=== PATIENT | female | born 1985 | race Caucasian/White ===

== ENCOUNTER → 2021-09-07 10:49 | Outpatient (BNVA) | payer BC, SELFPAY | PROVIDERS: Family Provider Obstetrics & Gynecology; Visit Provider Nurse Practitioner Family | DX: M25.522 Pain in left elbow (principal) | CPT/HCPCS: 73080 ==

== ENCOUNTER → 2022-11-30 10:40 | Outpatient (BNVA) | payer BC, SELFPAY | PROVIDERS: Family Provider Obstetrics & Gynecology; Visit Provider Podiatrist Foot & Ankle Surgery | DX: M77.52 Other enthesopathy of left foot and ankle (principal); M76.822 Posterior tibial tendinitis, left leg | CPT/HCPCS: 73610 ==

== ENCOUNTER → 2023-06-08 11:18 | Outpatient (BNVA) | payer BC, SELFPAY | PROVIDERS: Family Provider Obstetrics & Gynecology; Visit Provider Nurse Practitioner Family | DX: R53.83 Other fatigue (principal); E66.9 Obesity, unspecified | CPT/HCPCS: 80053; 80061; 84443 ==

== ENCOUNTER 2023-08-07 08:30 | Outpatient (CLI) | payer BC, SELFPAY | END 2023-08-07 08:31 | disposition home or self-care (01) | LOC: SLEEP 08-08 10:45 | PROVIDERS: Family Provider Obstetrics & Gynecology; Visit Provider Nurse Practitioner Family | DX: G47.33 Obstructive sleep apnea (adult) (pediatric) (principal) | CPT/HCPCS: G0399 ==

== ENCOUNTER → 2025-04-23 15:38 | Outpatient (BNVA) | payer BC, SELFPAY | PROVIDERS: PCP Nurse Practitioner Family; Visit Provider Nurse Practitioner Family | DX: S82.124A Nondisplaced fracture of lateral condyle of right tibia, initial encounter for closed fracture (principal); X58.XXXA Exposure to other specified factors, initial encounter | CPT/HCPCS: 73562 ==

== ENCOUNTER → 2025-05-01 14:34 | Outpatient (BNVA) | payer BC, SELFPAY | PROVIDERS: PCP Nurse Practitioner Family; Visit Provider Orthopaedic Surgery | DX: M25.461 Effusion, right knee (principal); M25.561 Pain in right knee; S89.91XA Unspecified injury of right lower leg, initial encounter; X58.XXXA Exposure to other specified factors, initial encounter | CPT/HCPCS: 73562 ==

== ENCOUNTER 2025-05-05 08:58 | Outpatient (CLI) | payer BC, SELFPAY ==
--- NOTE | 2025-05-05 09:00 | CT_ITS ---
WS: [id number] CT RIGHT KNEE, NONCONTRAST HISTORY: injury to right knee Technique: All CT scans at [facility] use at least one of these dose optimization techniques: automated exposure control; mA and/or kV adjustment per patient size (includes targeted exams where dose is matched to clinical indication); or iterative reconstruction. DLP: 445.16 mGy.cm COMPARISON: 04/23/2025 and 05/01/2025 radiographs. Acute, nonhealed lateral tibial plateau fracture with minimal depression by approximately 2 mm. Fracture begins in the more anterior tibial plateau and extends posteriorly. No intra-articular fragments. Fracture does not extend to the tibial diaphysis. Medial tibial plateau is intact. Femoral condyles are normal. Normal alignment at the knee joint. Normal appearance of the patella. There is a small suprapatellar joint effusion. Slight lateral subluxation of the patella. The medial patellar retinaculum is thin and indistinct. No muscle atrophy. CT/CT knee RT wo con* [id number] IMPRESSION: 1. Minimally depressed lateral tibial plateau fracture without complete healin g. 2. No intra-articular bone fragments. 3. Mild lateral subluxation of the patella. 4. Indistinct medial patellar retinaculum. There is some edema along the expec manju location of the medial patellar retinaculum. If there is any clinical darwin rn for medial patellar retinaculum tear consider MRI evaluation. 5. Small suprapatellar effusion.
== END 2025-05-05 08:59 | disposition home or self-care (01) ==
LOC: RAD 09:02
PROVIDERS: PCP Nurse Practitioner Family; Visit Provider Orthopaedic Surgery
DX: S82.124D Nondisplaced fracture of lateral condyle of right tibia, subsequent encounter for closed fracture with routine healing (principal); S83.01 Lateral subluxation and dislocation of patella; X58.XXXD Exposure to other specified factors, subsequent encounter; M25.461 Effusion, right knee; M22.8X1 Other disorders of patella, right knee
CPT/HCPCS: 73700

== ENCOUNTER → 2025-06-03 13:10 | Outpatient (BNVA) | payer BC, SELFPAY | PROVIDERS: PCP Nurse Practitioner Family; Visit Provider Orthopaedic Surgery | DX: S82.141D Displaced bicondylar fracture of right tibia, subsequent encounter for closed fracture with routine healing (principal); X58.XXXD Exposure to other specified factors, subsequent encounter | CPT/HCPCS: 73560; 73565 ==

== ENCOUNTER → 2025-07-01 08:36 | Outpatient (BNVA) | payer BC, SELFPAY | PROVIDERS: PCP Nurse Practitioner Family; Visit Provider Orthopaedic Surgery | DX: S82.141D Displaced bicondylar fracture of right tibia, subsequent encounter for closed fracture with routine healing (principal); X58.XXXD Exposure to other specified factors, subsequent encounter | CPT/HCPCS: 73560; 73565 ==